=== PATIENT | male | born 1970 | race Caucasian/White ===

== ENCOUNTER 2019-03-18 11:15 | Emergency (ER) | payer OTHER ==
[~2019-03-18] VITALS: Ht 175.3 cm; Wt 88.5 kg
[2019-03-18 11:22] VITALS: BP_SYST 125
--- NOTE | 2019-03-18 11:46 | NUR ---
PATIENT PRESENTS TO THE ER WITH THREE WEEK HX OF LEFT SIDED CHEST PAIN WITH RADIATION TO LEFT THORACIC AREA; NO TRAUMA, NO OTHER REMARKABLE S/S; PATIENT TO ER #2 AT 1115 AND ERMD EVALUATION AT 1140; STAT EKG AND LICENSED PRACTICAL NURSE/SAO2
[2019-03-18 11:56] VITALS: BP_SYST 112
--- NOTE | 2019-03-18 11:59 | NUR ---
REASSESSMENT BY ERMD; ACI GIVEN PER ERMD AND PATIENT DISCHARGED WITH FULL UNDERSTANDING OF ACI; UNCHANGED AND AMBULATORY
== END 2019-03-18 11:59 | disposition home or self-care (01) ==
LOC: SED 11:15
DX: M94.0 Chondrocostal junction syndrome [Tietze] (principal); E11.9 Type 2 diabetes mellitus without complications; Z88.8 Allergy status to other drugs, medicaments and biological substances
CPT/HCPCS: 99283